=== PATIENT | male | born 1940 | race Caucasian/White ===

== ENCOUNTER → 2017-05-21 | Outpatient (CLI) | payer MEDICARE, BC | END | disposition home or self-care (01) | LOC: HKI 16:42 | DX: M70.42 Prepatellar bursitis, left knee (principal); Y93.9 Activity, unspecified | CPT/HCPCS: 73562; 73562-LT ==

== ENCOUNTER → 2017-06-09 | Outpatient (CLI) | payer MEDICARE, BC | END | disposition home or self-care (01) | LOC: HKI 13:29 | DX: M70.42 Prepatellar bursitis, left knee (principal) | CPT/HCPCS: G0463 ==